=== PATIENT | female | born 1950 | race Caucasian/White ===

== ENCOUNTER → 2017-11-14 | Outpatient (CLI) | payer MEDICARE, BC ==
--- NOTE | 2017-11-16 10:30 | MM ---
Reason for exam: screening (asymptomatic). Last mammogram was performed 1 year and 7 months ago. History: Patient is postmenopausal and is nulliparous. Family history of breast cancer in mother at age 50 and breast cancer in sister. Took hormonal contraceptives for 1 year. Physical Findings: A clinical breast exam by your physician is recommended on an annual basis and results should be correlated with mammographic findings. MG Screening Mammo w CAD Bilateral CC and MLO view(s) were taken. Prior study comparison: April 29, 2016, bilateral MG screening mammo w CAD. April 28, 2015, bilateral MG screening mammo w CAD. The breast tissue is heterogeneously dense. This may lower the sensitivity of mammography. There are benign appearing round, oval, circumscribed, stable masses. Benign appearing bilateral calcifications. No suspicious abnormality. No significant changes when compared with prior studies. ASSESSMENT: Benign, BI-RAD 2 RECOMMENDATION: Routine screening mammogram of both breasts in 1 year.
== END | disposition home or self-care (01) ==
LOC: RADMAMWWP 15:01
PROVIDERS: ATTEND Family Medicine
DX: Z12.31 Encounter for screening mammogram for malignant neoplasm of breast (principal)
CPT/HCPCS: 77067

== ENCOUNTER → 2019-04-20 | Outpatient (CLI) | payer MEDICARE, BC ==
--- NOTE | 2019-04-24 08:53 | MM ---
Reason for exam: screening (asymptomatic). Last mammogram was performed 1 year and 5 months ago. History: Patient is postmenopausal and is nulliparous. Family history of breast cancer in mother at age 50 and breast cancer in sister. Took hormonal contraceptives for 1 year. Physical Findings: A clinical breast exam by your physician is recommended on an annual basis and results should be correlated with mammographic findings. MG 3D Screening Mammo W/Cad Bilateral CC and MLO view(s) were taken. Prior study comparison: November 14, 2017, bilateral MG screening mammo w CAD. April 29, 2016, bilateral MG screening mammo w CAD. The breast tissue is heterogeneously dense. This may lower the sensitivity of mammography. Finding: There are typically benign coarse calcifications in the left breast. No significant changes in finding since November 14, 2017 and April 29, 2016. ASSESSMENT: Benign, BI-RAD 2 RECOMMENDATION: Routine screening mammogram of both breasts in 1 year.
== END | disposition home or self-care (01) ==
LOC: RADMAMWWP 11:17
PROVIDERS: ATTEND Family Medicine
DX: Z12.31 Encounter for screening mammogram for malignant neoplasm of breast (principal)
CPT/HCPCS: 77063; 77067

== ENCOUNTER 2023-01-08 17:36 | Emergency (ER) | payer MEDICARE ==
[2023-01-08 17:47] VITALS: TEMP 97.4
--- NOTE | 2023-01-08 18:44 | ED ---
ENT HPI - General Chief complaint: ENT Stated complaint: Pill stuck in throat Time Seen by Provider: 01/08/23 17:44 Source: patient, EMS Mode of arrival: EMS - History of Present Illness Initial comments: Patient is a pleasant 72-year-old female presenting the emergency room via EMS with complaints of having her Wechol tablets stuck in her throat after taking her evening dose to night. She states that she was able to drink water right afterwards without any vomiting but attempt to eat food and did vomit up the deli meat that she ate. She denies vomiting the pills and feels like they are still stuck in her throat. She denies any difficulty in breathing. She reports no previous difficulty with swallowing pills. She'll past medical history significant for hypertension, hyperlipidemia and DVT. - Related Data Home Medications Medication Instructions Recorded Confirmed Acetaminophen [Tylenol] 500 mg PO Q4-6H PRN 12/05/14 12/07/14 Bisoprolol-Hctz 2.5-6.25 mg [Ziac 1 each PO DAILY 12/05/14 12/07/14 2.5-6.25] Ca/D3/Mag/Zinc/Chinedu/Chris/Mgbor 2 each PO DAILY 12/05/14 12/07/14 [Caltrate 600+D3+Min Chew Tab] Colesevelam [Welchol] 1,875 mg PO BID 12/05/14 12/07/14 Imipramine HCl [Tofranil] 25 mg PO BID 12/05/14 12/07/14 Multivit-Min/FA/Lycopene/Lut 1 each PO DAILY 12/05/14 12/07/14 [Centrum Silver Tablet] Megared Caps 400mg 400 mg PO DAILY 12/07/14 12/07/14 Naproxen Sodium [Aleve] 220 mg PO Q12HR 12/07/14 12/07/14 Previous Rx's Medication Instructions Recorded Acetaminophen-Codeine 300-30mg 1 tab PO Q4H PRN #30 tablet NS 12/06/14 [Tylenol #3] Allergies Allergy/AdvReac Type Severity Reaction Status Date / Time bacitracin Allergy Rash/Hives Verified 12/07/14 12:53 [From Neosporin ([id number])] bacitracin zinc Allergy Rash/Hives Verified 12/07/14 12:53 [From Neosporin ([id number])] neomycin sulfate Allergy Rash/Hives Verified 12/07/14 12:53 [From Neosporin ([id number])] polymyxin B Allergy Rash/Hives Verified 12/07/14 12:53 [From Neosporin ([id number])] Review of Systems ROS Statement: Those systems with pertinent positive or pertinent negative responses have been documented in the HPI. ROS Other: All systems not noted in ROS Statement are negative. Past Medical History Past Medical History: Deep Vein Thrombosis (DVT), Hyperlipidemia, Hypertension, Osteoarthritis (OA) History of Any Multi-Drug Resistant Organisms: None Reported Past Surgical History: Orthopedic Surgery, Tonsillectomy Additional Past Surgical History / Comment(s): sinus surgery x2, growth removed from forehead, eyelid surgery, tissue surgically removed from rt arm(cellulitis from cat scratch fever), cysts removed from rt knee Past Anesthesia/Blood Transfusion Reactions: No Reported Reaction Past Psychological History: No Psychological Hx Reported Smoking Status: Never smoker Past Alcohol Use History: Rare Past Drug Use History: None Reported - Past Family History Sister(s) Family Medical History: Cancer Mother Family Medical History: Cancer General Exam Limitations: no limitations General appearance: alert, in no apparent distress, obese Head exam: Present: atraumatic, normocephalic, normal inspection Eye exam: Present: normal appearance, PERRL, EOMI. Absent: scleral icterus, conjunctival injection, periorbital swelling ENT exam: Present: normal exam, mucous membranes moist, normal external ear exam Neck exam: Present: normal inspection, full ROM. Absent: tenderness, lymphadenopathy Respiratory exam: Present: normal lung sounds bilaterally. Absent: respiratory distress, wheezes, rales, rhonchi, stridor Cardiovascular Exam: Present: regular rate, normal rhythm, normal heart sounds. Absent: systolic murmur, diastolic murmur, rubs, gallop, clicks GI/Abdominal exam: Present: soft, normal bowel sounds. Absent: distended, tenderness, guarding, rebound, rigid Extremities exam: Present: normal inspection. Absent: pedal edema, joint swelling Back exam: Present: normal inspection Neurological exam: Present: alert, oriented X3, CN II-XII intact Psychiatric exam: Present: normal affect, normal mood Skin exam: Present: warm, dry, intact, normal color. Absent: rash Course Vital Signs 01/08/23 01/08/23 17:37 18:54 Temperature 97.4 F L Pulse Rate 93 76 Respiratory 20 16 Rate Blood Pressure 154/90 155/113 O2 Sat by Pulse 97 98 Oximetry Medical Decision Making - Medical Decision Making Was pt. sent in by a medical professional or institution (FAUSTO Grigsby, [employer], urgent care, hospital, or [facility]...) When possible be specific @ -No Did you speak to anyone other than the patient for history (EMS, parent, family, police, friend...)? What history was obtained from this source @ -No Did you review nursing and triage notes (agree or disagree)? Why? @ -I reviewed and agree with nursing and triage notes Were old charts reviewed (outside hosp., previous admission, EMS record, old EKG, old radiological studies, urgent care reports/EKG's, [facility] records)? Report findings @ -No old charts were reviewed Differential Diagnosis (chest pain, altered mental status, abdominal pain women, abdominal pain men, vaginal bleeding, weakness, fever, dyspnea, syncope, headache, dizziness, GI bleed, back pain, seizure, CVA, palpatations, mental health, musculoskeletal)? @ -not applicable EKG interpreted by me (3pts min.). @ -None done X-rays interpreted by me (1pt min.). @ -None done CT interpreted by me (1pt min.). @ -None done U/S interpreted by me (1pt. min.). @ -None done What testing was considered but not performed or refused? (CT, X-rays, U/S, labs)? Why? @ -None What meds were considered but not given or refused? Why? @ -None Did you discuss the management of the patient with other professionals (professionals i.e. FAUSTO Grigsby, MEAT BUTCHER, lab, RT, psych nurse, child protective services social worker, cable engineer outside plant, teacher, first aid officer, correctional counselor/case manager)? Give summary @ -No Was smoking cessation discussed for >3mins.? @ -No Was critical care preformed (if so, how long)? @ -No Were there social determinants of health that impacted care today? How? (Ho melessness, low income, unemployed, alcoholism, drug addiction, transportation, low edu. Level, literacy, decrease access to med. care, half-way, rehab)? @ -No Was there de-escalation of care discussed even if they declined (Discuss DNR or withdrawal of care, Hospice)? DNR status @ -No What co-morbidities impacted this encounter? (DM, HTN, Smoking, COPD, CAD, Cancer, CVA, ARF, Chemo, Hep., AIDS, mental health diagnosis, sleep apnea, morbid obesity)? @ -None Was patient admitted / discharged? Hospital course, mention meds given and route, prescriptions, significant lab abnormalities, going to OR and other pertinent info. @ -Exam revealed no abnormalities. Airway patent. Able to drink fluids without complication. No d female presenting the emergency room via EMS with complaints of having her Wechol tablets stuck in her throat after taking her evening dose to night. She states that she was able to drink water right afterwards without any vomiting but attempt to eat food and did vomit up the deli meat that she ate. Exam reveals no abnormalities. Airway patent. Able to drink water without complication. No indication for any diagnostic testing. After oral fluid intake patient reports she feels as though the pills past and she no longer feels as though they are stuck in her esophagus. Patient encouraged to follow-up with her primary care provider and to take medications one at a time with copious amounts of fluids. Questions and concerns answered. Return parameters to the emergency room discussed. Will discharge home in stable condition after evaluation for pill esophagitis advising follow-up with primary care provider. Undiagnosed new problem with uncertain prognosis? @ -No Drug Therapy requiring intensive monitoring for toxicity (Heparin, Nitro, Insulin, Cardizem)? @ -No Were any procedures done? @ -No Diagnosis/symptom? @ -Pill esophagitis Acute, or Chronic, or Acute on Chronic? @ -Acute Uncomplicated (without systemic symptoms) or Complicated (systemic symptoms)? @ -Uncomplicated Side effects of treatment? @ -No Exacerbation, Progression, or Severe Exacerbation? @ -No Poses a threat to life or bodily function? How? (Chest pain, [place], [place], pneumonia, PE, COPD, DKA, ARF, appy, cholecystitis, CVA, Diverticulitis, Homicidal, Suicidal, threat to staff... and all critical care pts) @ -No Case discussed with Dr. Reeves Disposition Clinical Impression: Pill esophagitis Disposition: HOME SELF-CARE Condition: Stable Instructions (If sedation given, give patient instructions): Esophageal Foreign Body (ED) Additional Instructions: Drink plenty of fluids. Please continue to take your medications as prescribed. Please follow-up with your primary care provider. Please return to the Emergency Department if symptoms worsen or any other concerns. Is patient prescribed a controlled substance at d/c from ED?: No Referrals: Tong Jiang DO [Primary Care Provider] - 1-2 days Time of Disposition: 18:49
[2023-01-08 18:57] VITALS: BP 155/113; PULSE 76; RESP 16
== END 2023-01-08 19:01 | disposition home or self-care (01) ==
LOC: EC 17:36
DX: T18.100A Unspecified foreign body in esophagus causing compression of trachea, initial encounter (principal); I10 Essential (primary) hypertension; M19.90 Unspecified osteoarthritis, unspecified site; Z79.899 Other long term (current) drug therapy; Z88.2 Allergy status to sulfonamides; Z88.8 Allergy status to other drugs, medicaments and biological substances
CPT/HCPCS: 99284

== ENCOUNTER 2024-04-18 04:02 | Emergency (ER) | payer MEDICARE ==
[2024-04-18 04:14] VITALS: TEMP 99.2
--- NOTE | 2024-04-18 04:37 | ED ---
General Adult HPI - General Chief complaint: Neck Pain/Injury Stated complaint: neck pain Time Seen by Provider: 04/18/24 04:15 Source: EMS Mode of arrival: EMS - History of Present Illness Initial comments: Dictation was produced using [employer] dictation software. please excuse any g rammatical, word or spelling errors. Chief Complaint: 73-year-old female with stiff neck History of Present Illness: Patient 73-year-old female she was sleeping in her recliner when all of a sudden she felt some stiffness in her neck. Denies any fever, chills or night sweats. States that she never has had cramping in her neck before. She feels like her left lateral neck feels worse than her right neck however it is symptomatic on both sides. Denies any extremity symptoms. No constitutional symptoms. The ROS documented in this emergency department record has been reviewed and confirmed by me. Those systems with pertinent positive or negative responses have been documented in the HPI. All other systems are other negative and/or noncontributory. - Related Data Home Medications Medication Instructions Recorded Confirmed Acetaminophen [Tylenol] 500 mg PO Q4-6H PRN 12/05/14 12/07/14 Bisoprolol-Hctz 2.5-6.25 mg [Ziac 1 each PO DAILY 12/05/14 12/07/14 2.5-6.25] Ca/D3/Mag/Zinc/Chinedu/Chris/Mgbor 2 each PO DAILY 12/05/14 12/07/14 [Caltrate 600+D3+Min Chew Tab] Colesevelam [Welchol] 1,875 mg PO BID 12/05/14 12/07/14 Imipramine HCl [Tofranil] 25 mg PO BID 12/05/14 12/07/14 Multivit-Min/FA/Lycopene/Lut 1 each PO DAILY 12/05/14 12/07/14 [Centrum Silver Tablet] Megared Caps 400mg 400 mg PO DAILY 12/07/14 12/07/14 Naproxen Sodium [Aleve] 220 mg PO Q12HR 12/07/14 12/07/14 Previous Rx's Medication Instructions Recorded Acetaminophen-Codeine 300-30mg 1 tab PO Q4H PRN #30 tablet NS 12/06/14 [Tylenol #3] Cyclobenzaprine [Flexeril] 10 mg PO TID PRN #20 tab 04/18/24 Allergies Allergy/AdvReac Type Severity Reaction Status Date / Time bacitracin Allergy Rash/Hives Verified 04/18/24 04:14 [From Neosporin ([id number])] bacitracin zinc Allergy Rash/Hives Verified 04/18/24 04:14 [From Neosporin ([id number])] neomycin sulfate Allergy Rash/Hives Verified 04/18/24 04:14 [From Neosporin ([id number])] polymyxin B Allergy Rash/Hives Verified 04/18/24 04:14 [From Neosporin ([id number])] Review of Systems ROS Statement: Those systems with pertinent positive or pertinent negative responses have been documented in the HPI. ROS Other: All systems not noted in ROS Statement are negative. Past Medical History Past Medical History: Deep Vein Thrombosis (DVT), Hyperlipidemia, Hypertension, Osteoarthritis (OA), Thyroid Disorder History of Any Multi-Drug Resistant Organisms: None Reported Past Surgical History: Orthopedic Surgery, Tonsillectomy Additional Past Surgical History / Comment(s): sinus surgery x2, growth removed from forehead, eyelid surgery, tissue surgically removed from rt arm(cellulitis from cat scratch fever), cysts removed from rt knee Past Anesthesia/Blood Transfusion Reactions: No Reported Reaction Past Psychological History: No Psychological Hx Reported Smoking Status: Never smoker Past Alcohol Use History: Rare Past Drug Use History: None Reported - Past Family History Sister(s) Family Medical History: Cancer Mother Family Medical History: Cancer General Exam - General Exam Comments Initial Comments: PHYSICAL EXAM: General Impression: Alert and oriented x3, not in acute distress HEENT: Normocephalic atraumatic, extra-ocular movements intact, pupils equal and reactive to light bilaterally, mucous membranes moist. Cardiovascular: Heart regular rate and rhythm Chest: Able to complete full sentences, no retractions, no tachypnea Abdomen: abdomen soft, non-tender, non-distended, no organomegaly Musculoskeletal: Pulses present and equal in all extremities, no peripheral edema, tenderness to the paraspinal cervical soft tissues Motor: no focal deficits noted Neurological: CN II-XII grossly intact, no focal motor or sensory deficits noted Skin: Intact with no visualized rashes Psych: Normal affect and mood Course Vital Signs 04/18/24 04/18/24 04:06 04:52 Temperature 99.2 F Pulse Rate 99 90 Respiratory 18 14 Rate Blood Pressure 128/86 142/93 O2 Sat by Pulse 94 L 93 L Oximetry Medical Decision Making - Medical Decision Making Was pt. sent in by a medical professional or institution (, PA, HOOP PUNCH OPERATOR HELPER, urgent care, hospital, or long-term...) When possible be specific @ -No Did you speak to anyone other than the patient for history (EMS, parent, family, police, friend...)? What history was obtained from this source @ -No Did you review nursing and triage notes (agree or disagree)? Why? @ -I reviewed and agree with nursing and triage notes Were old charts reviewed (outside hosp., previous admission, EMS record, old EKG, old radiological studies, urgent care reports/EKG's, long-term records)? Report findings @ -No old charts were reviewed Differential Diagnosis (chest pain, altered mental status, abdominal pain women, abdominal pain men, vaginal bleeding, musculoskeletal, weakness, fever, dyspnea, syncope, headache, dizziness, GI bleed, back pain, seizure, CVA, palpatations, mental health)? @ -Cervical strain, cervical fracture, meningitis EKG interpreted by me (3pts min.). @ -None done X-rays interpreted by me (1pt min.). @ -None done CT interpreted by me (1pt min.). @ -None done U/S interpreted by me (1pt. min.). @ -None done What testing was considered but not performed or refused? (CT, X-rays, U/S, labs)? Why? @ -None What meds were considered but not given or refused? Why? @ -None Was smoking cessation discussed for >3mins.? @ -No Were there social determinants of health that impacted care today? How? (Homelessness, low income, unemployed, alcoholism, drug addiction, transportation, low edu. Level, literacy, decrease access to med. care, [facility] [facility], rehab)? @ -No Was there de-escalation of care discussed even if they declined (Discuss DNR or withdrawal of care, Hospice)? DNR status @ -No What co-morbidities impacted this encounter? (DM, HTN, Smoking, COPD, CAD, Cancer, CVA, ARF, Chemo, Hep., AIDS, mental health diagnosis, sleep apnea, morbid obesity)? @ -None Was patient admitted / discharged? Hospital course, mention meds given and route, prescriptions, significant lab abnormalities, going to OR and other pertinent info. @ -73-year-old female presents with clinical presentation consistent with cervical strain. Vital signs stable. Patient given symptomatic medications. Laboratory evaluation obtained. Reevaluated bedside at 5:53 AM with improvement of her symptoms. Patient discharged with prescription for muscle relaxants Did you discuss the management of the patient with other professionals (professionals i.e. , PA, HOOP PUNCH OPERATOR HELPER, lab, RT, psych nurse, health and social care teacher, gang miner, teacher, vice squad police officer, rn case management)? Give summary @ -No Was critical care preformed (if so, how long)? @ -No Undiagnosed new problem with uncertain prognosis? @ -No Drug Therapy requiring intensive monitoring for toxicity (Heparin, Nitro, Insulin, Cardizem)? @ -No Were any procedures done? @ -No Diagnosis/symptom? Acute, or Chronic, or Acute on Chronic? Uncomplicated (without systemic symptoms) or Complicated (systemic symptoms)? @ -Cervical strain Side effects of treatment? @ -No Exacerbation, Progression, or Severe Exacerbation? @ -No Poses a threat to life or bodily function? How? (Chest pain, [place], [place], pneumonia, PE, COPD, DKA, ARF, appy, cholecystitis, CVA, Diverticulitis, Homicidal, Suicidal, threat to staff... and all critical care pts) @ -yes - Lab Data Result diagrams: 04/18/24 04:36 04/18/24 04:36 Lab Results 04/18/24 04/18/24 Range/Units 04:36 04:36 WBC 9.4 (3.8-10.6) k/uL RBC 5.00 (3.80-5.40) m/uL Hgb 14.5 (11.4-16.0) gm/dL Hct 45.3 (34.0-46.0) % MCV 90.7 (80.0-100.0) fL MCH 29.1 (25.0-35.0) pg MCHC 32.1 (31.0-37.0) g/dL RDW 13.6 (11.5-15.5) % Plt Count 269 (150-450) k/uL MPV 8.1 Neutrophils % 75 % Lymphocytes % 14 % Monocytes % 8 % Eosinophils % 1 % Basophils % 0 % Neutrophils # 7.1 (1.3-7.7) k/uL Lymphocytes # 1.3 (1.0-4.8) k/uL Monocytes # 0.8 (0-1.0) k/uL Eosinophils # 0.1 (0-0.7) k/uL Basophils # 0.0 (0-0.2) k/uL Sodium 137 (137-145) mmol/L Potassium 3.7 (3.5-5.1) mmol/L Chloride 106 (98-107) mmol/L Carbon Dioxide 25 (22-30) mmol/L Anion Gap 6 mmol/L BUN 15 (7-17) mg/dL Creatinine 0.58 (0.52-1.04) mg/dL Est GFR (CKD-EPI)AfAm >90 (>60 ml/min/1.73 sqM) Est GFR (CKD-EPI)NonAf >90 (>60 ml/min/1.73 sqM) Glucose 99 (74-99) mg/dL Calcium 9.4 (8.4-10.2) mg/dL Disposition Clinical Impression: Cervical strain Disposition: HOME SELF-CARE Condition: Fair Instructions (If sedation given, give patient instructions): Cervical Strain (ED) Prescriptions: Cyclobenzaprine [Flexeril] 10 mg PO TID PRN #20 tab PRN Reason: neck tightness Is patient prescribed a controlled substance at d/c from ED?: No Referrals: Tong Jiang DO [Primary Care Provider] - 1-2 days Time of Disposition: 05:54
[2024-04-18] MEDS: SODIUM CHLORIDE 0.9% 1,000 ML IV STA (04:40)
[2024-04-18] MEDS: KETOROLAC 15 MG/ML 1 ML VIAL IVP STA (04:43)
[2024-04-18 04:44] LABS: Basophils % (A) 0 %; Eosinophils # (A) 0.1 k/uL (0-0.7); Eosinophils % (A) 1 %; HCT 45.3 % (34.0-46.0); HGB 14.5 gm/dL (11.4-16.0); Lymphocytes # (A) 1.3 k/uL (1.0-4.8); Lymphocytes % (A) 14 %; MCH 29.1 pg (25.0-35.0); MCHC 32.1 g/dL (31.0-37.0); MCV 90.7 fL (80.0-100.0); Mean Platelet Volume 8.1; Monocytes # (A) 0.8 k/uL (0-1.0); Monocytes % (A) 8 %; Neutrophils # (A) 7.1 k/uL (1.3-7.7); Neutrophils % (A) 75 %; Platelet Count 269 k/uL (150-450); RDW 13.6 % (11.5-15.5); WBC 9.4 k/uL (3.8-10.6)
[2024-04-18 05:01] LABS: Chloride 106 mmol/L (98-107); Glucose 99 mg/dL (74-99); Potassium 3.7 mmol/L (3.5-5.1); Sodium 137 mmol/L (137-145)
[2024-04-18 05:02] LABS: African American GFR (CKD) >90 (>60 ml/min/1.73 sqM); Anion Gap 6 mmol/L; Blood Urea Nitrogen 15 mg/dL (7-17); Calcium 9.4 mg/dL (8.4-10.2); Carbon Dioxide 25 mmol/L (22-30); Non-African American GFR(CKD) >90 (>60 ml/min/1.73 sqM)
[2024-04-18 06:07] VITALS: BP 124/63; PULSE 86; RESP 16
== END 2024-04-18 06:06 | disposition home or self-care (01) ==
LOC: EC 04:02
DX: S16.1XXA Strain of muscle, fascia and tendon at neck level, initial encounter (principal); Z88.8 Allergy status to other drugs, medicaments and biological substances; X58.XXXA Exposure to other specified factors, initial encounter
CPT/HCPCS: 36415; 80048; 85025; 99284; 96374; 96375; 96376; 96361; J3360; J1885

== ENCOUNTER → 2024-06-14 | Outpatient (CLI) | payer MEDICARE ==
--- NOTE | 2024-06-14 13:56 | MM ---
Reason for Exam: Screening (asymptomatic). Last mammogram was performed 5 year(s) and 2 month(s) ago. Patient History: Menarche at age 15. Patient has no children. Postmenopausal. Patient used Hormonal Contraceptives for 1 year. Sister had breast cancer. Mother had breast cancer, age 50. Risk Values: Carole 5 year model risk: 6.1%. NCI Lifetime model risk: 15.1%. Prior Study Comparison: 04/29/2016 Bilateral Screening Mammogram, [facility]. 11/14/2017 Bilateral Screening Mammogram, [facility]. 04/20/2019 Bilateral Screening Mammogram, [facility]. Tissue Density: The breasts are heterogeneously dense, which may obscure small masses. Findings: Analyzed By CAD. A large benign-appearing dystrophic calcification the left breast is redemonstrated. There is no suspicious group of microcalcifications or new suspicious mass in either breast. Overall Assessment: Benign, BI-RAD 2 Management: Screening Mammogram of both breasts in 1 year. . Patient should continue monthly self-breast exams. A clinical breast exam by your physician is recommended on an annual basis. This exam should not preclude additional follow-up of suspicious palpable abnormalities. Note on Carole scores and lifetime risk: 1. A Carole score greater than 3% is considered moderate risk. If this is the case, consider specialist referral to assess eligibility for a risk reducing agent. 2. If overall lifetime risk for the development of breast cancer is 20% or higher, the patient may qualify for future screening with alternating mammogram and breast MRI. [facility], , 06/14/2024 1:54 PM. Electronically signed and approved by: Alex España M.D.
== END | disposition home or self-care (01) ==
LOC: RADMAMWWP 12:01
PROVIDERS: ATTEND Family Medicine
DX: Z12.31 Encounter for screening mammogram for malignant neoplasm of breast (principal); R92.333 Mammographic heterogeneous density, bilateral breasts; Z78.0 Asymptomatic menopausal state; Z80.3 Family history of malignant neoplasm of breast
CPT/HCPCS: 77063; 77067

== ENCOUNTER → 2024-08-07 | Outpatient (CLI) | payer MEDICARE ==
--- NOTE | 2024-08-07 13:24 | XR ---
EXAMINATION TYPE: XR lumbar spine 2 or 3V DATE OF EXAM: 08/07/2024 CLINICAL INDICATION: Female, 74 years old with history of N39.3 URINARY INCONTINENCE, pain TECHNIQUE: Frontal and lateral images of the lumbar spine are obtained. COMPARISON: None FINDINGS: There are 5 lumbar type vertebral bodies identified. Osseous structures are demineralized which is noted in the lower radiographic sensitivity There is prominent dextroconvex scoliosis center ed at L2-L3 level. There is straightening of lumbar spine on lateral images. Vertebral body heights a re maintained. Multilevel disc space narrowing is present. Severe findings noted left L2-L3 and right L4-L5 levels. There is 12 mm left renal calculus at L2-L3 disc space level noted. There is partial v isualization of pelvic stimulator device. IMPRESSION: As above. [facility], , 08/07/2024 1:22 PM
== END | disposition home or self-care (01) ==
LOC: RADXRMAIN 12:09
PROVIDERS: ATTEND Urology
DX: N39.3 Stress incontinence (female) (male) (principal); M41.86 Other forms of scoliosis, lumbar region; M51.360 Other intervertebral disc degeneration, lumbar region with discogenic back pain only; N20.0 Calculus of kidney
CPT/HCPCS: 72100

== ENCOUNTER → 2024-10-10 | Outpatient (CLI) | payer MEDICARE ==
--- NOTE | 2024-10-10 15:14 | BD ---
EXAMINATION TYPE: Axial Bone Density DATE OF EXAM: 10/10/2024 CLINICAL HISTORY: 74 years old Female. ICD-10 CODE: Z78.0 POST MENOPAUSAL , Additional History: Height: 58.5 in Weight: 247 lbs MEDICATIONS: Thyroid Medications: yes Which medication: Levothyroxine How Lon year Osteoporosis Medications: Which medication: How Long: EXAM MEASUREMENTS: Bone mineral densitometry was performed using the [employer] System. Bone mineral density as measured about the Lumbar spine is: ----- L1-L4(G/cm2): 0.907 T Score Values are as follows: ----- L1: -2.9 ----- L2: -2.9 ----- L3: -2.2 ----- L4: -1.3 ----- L1-L4: -2.3 Z Score Values are as follows: ----- L1: -2.3 ----- L2: -2.4 ----- L3: -1.7 ----- L4: -0.7 ----- L1-L4: -1.7 Bone mineral density has: Decreased -10.3% since study of: 01/06/2016 Bone mineral density about the R hip (g/cm2): 0.822 Bone mineral density about the L hip (g/cm2): 0.769 T Score values are as follows: -----R Neck: -2.2 -----L Neck: -2.3 -----R Total: -1.5 -----L Total: -1.9 Z Score values are as follows: -----R Neck: -1.2 -----L Neck: -1.2 -----R Total: -0.7 -----L Total: -1.1 Bone mineral density has: Decreased -2.0% since study of: 01/06/2016 FRAX%s: The graph provided illustrates a 11.3% chance for a major osteoporotic fx and a 2.5% chance f or the hips probability for fx in 10 years time. IMPRESSION: Osteopenia (T Score between -2.5 and -1) remains present. There is slightly increased risk of fracture and the patient may be considered for treatment. Re-Screen 2-5 years. NOTE: T-SCORE=SD OF THE YOUNG ADULT MEAN. [facility], , 10/10/2024 3:12 PM
== END | disposition home or self-care (01) ==
LOC: RADBDWWP 14:14
PROVIDERS: ATTEND Family Medicine
DX: M85.89 Other specified disorders of bone density and structure, multiple sites (principal); Z78.0 Asymptomatic menopausal state
CPT/HCPCS: 77080